=== PATIENT | male | born 1965 | race Two or more races ===

== ENCOUNTER 2017-09-21 00:25 | Emergency (ER) | payer MEDICAID, SELFPAY ==
[~2017-09-21] VITALS: Ht 188 cm; Wt 104.3 kg
[2017-09-21 00:55] VITALS: BP 123/88
[2017-09-21] MEDS ORDERED: IBUPROFEN600 MG ORAL (01:23)
[2017-09-21 01:27] VITALS: BP 123/88
--- NOTE | 2017-09-21 02:00 | Emergency Room Report ---
History of Present Illness General Chief Complaint: Medical Clearance Present Illness HPI Patient's 52-year-old male who presented for increased right shoulder pain. The patient states that he is having pain to the lateral aspect of the shoulder which sharp in nature. This is worse with movement. Patient stated that he was injured while being arrested. The patient denies any current other locations of pain. He states he felt like he may have torn his labrum. 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 The patient presented for medical clearance for booking. Allergies: Coded Allergies: PENICILLINS (Verified Allergy, Unknown, 09/21/17) Patient History Past Medical History: see triage record Reviewed Nursing Documentation: PMH: Agreed, PSxH: Agreed Nursing Documentation-PMH Hx Hypertension: Yes Hx Cancer: Yes - bone cancer Review of Systems All Other Systems: negative except mentioned in HPI Physical Exam Vital Signs Date Time Temp Pulse Resp B/P (MAP) Pulse Ox O2 Delivery O2 Flow Rate FiO2 09/21/17 00:28 99.3 119 14 123/88 96 Room Air 99.3 General Appearance: well appearing, no apparent distress, alert, GCS 15, non- toxic Head: normocephalic, atraumatic ENT: hearing grossly normal, normal voice Neck: full range of motion, supple Respiratory: no respiratory distress, speaking full sentences Musculoskeletal: no calf tenderness, other - tenderness to right anterior shoulder Neurologic: normal inspection, alert, oriented x3, responsive, normal gait Psychiatric: mood/affect normal Medical Decision Making Diagnostic Impression: Primary Impression: Contusion of shoulder, right ER Course Patient presented for shoulder pain. Differential diagnoses included was not limited to fracture, dislocation, a.c. separation, septic joint.Patient is given ibuprofen. The x-ray imaging of the right shoulder three-view interpreted by me showed degenerative changes without evident fracture. Patient was advised that he may need MRI pain persists. The patient was medically cleared for booking. Last Vital Signs Date Time Temp Pulse Resp B/P (MAP) Pulse Ox O2 Delivery O2 Flow Rate FiO2 09/21/17 01:25 99.3 09/21/17 00:55 119 14 123/88 96 Room Air Status: improved Disposition: HOME, SELF-CARE Condition: Stable Scripts Ibuprofen* (MOTRIN*) 600 Mg Tablet 600 MG ORAL THREE TIMES A DAY, #30 TAB 0 Refills Prov: Tereso Davis 09/21/17 Departure Forms: Care Home Clearance Patient Instructions: Shoulder Pain, Contusion Additional Instructions: may need mri if pain persists Tereso Davis Sep 21, 2017 02:00
--- NOTE | 2017-09-21 11:53 | Diagnostic Imaging Report ---
Indication: Pain Technique: 3 views of the right shoulder Comparison: none Findings: No acute fractures. No dislocations. The joint spaces are preserved. There are mild degenerative proliferative changes of the acromioclavicular joint Impression: No acute bony trauma
== END 2017-09-21 01:27 ==
LOC: EMR 00:43
DX: S40.011A Contusion of right shoulder, initial encounter (principal); I10 Essential (primary) hypertension; Z85.830 Personal history of malignant neoplasm of bone; Z88.0 Allergy status to penicillin; Y35.93XA Legal intervention, means unspecified, suspect injured, initial encounter
CPT/HCPCS: 99283